=== PATIENT | female | born 1990 | race Caucasian/White ===

== ENCOUNTER 2024-05-28 05:52 | Emergency (ER) | payer OTHER ==
[~2024-05-28] VITALS: Ht 157.5 cm; Wt 85.0 kg
[2024-05-28] MEDS ORDERED: TRAZODONE HCL50 MG PO (06:13)
[2024-05-28] MEDS ORDERED: CYCLOBENZAPRINE5 MG PO (06:13)
[2024-05-28] MEDS ORDERED: AMPHETAMINE SAL10 MG PO (06:14)
[2024-05-28] MEDS ORDERED: FLUTICASONE PRO16 GM NAS (06:14)
[2024-05-28] MEDS ORDERED: AMPHETAMINE SAL15 MG PO (06:14)
[2024-05-28] MEDS ORDERED: BUPROPION HCL150 M2 PO (06:15)
[2024-05-28] MEDS ORDERED: DEPO-SUBQ104 MG/0.6 SUB-Q (06:15)
[2024-05-28] MEDS ORDERED: HYDROCODON-ACE1 EA10 PO (07:36)
[2024-05-28] MEDS ORDERED: PREDNISONE20 MG PO (07:36)
[2024-05-28 07:45] VITALS: BP 104/49
== END 2024-05-28 07:46 | disposition home or self-care (01) ==
LOC: ED 05:52
DX: M77.8 Other enthesopathies, not elsewhere classified (principal); Z88.0 Allergy status to penicillin; Z88.1 Allergy status to other antibiotic agents; Z88.2 Allergy status to sulfonamides; Z79.899 Other long term (current) drug therapy
CPT/HCPCS: 73030; 99283